=== PATIENT | female | born 1970 | race Hispanic/Latino ===

== ENCOUNTER → 2020-04-12 | Outpatient (CLI) | payer OTHER | LOC: MAMMO 10:36 | PROVIDERS: ATTEND Family Medicine | DX: Z12.31 Encounter for screening mammogram for malignant neoplasm of breast (principal) | CPT/HCPCS: 77067 ==

== ENCOUNTER 2024-05-31 17:00 | Outpatient (RCR) | payer OTHER | END 2024-06-12 | LOC: PT 17:00 | PROVIDERS: ATTEND Podiatrist | DX: M76.61 Achilles tendinitis, right leg (principal) ==

== ENCOUNTER → 2024-07-05 | Outpatient (REF) | payer OTHER | LOC: MAMMO 16:05 | PROVIDERS: ATTEND Family Medicine | DX: Z12.31 Encounter for screening mammogram for malignant neoplasm of breast (principal) | CPT/HCPCS: 77067 ==